=== PATIENT | male | born 1960 | race Caucasian/White ===

== ENCOUNTER → 2021-08-17 15:23 | Outpatient (CLI) | payer OTHER, SELFPAY ==
--- NOTE | 2021-08-17 15:37 | CT_ITS ---
STUDY: CT ABDOMEN AND PELVIS WITHOUT CONTRAST REASON FOR EXAM: Male, 60 years old. GROSS HEMATURIA RADIATION DOSAGE (If Supplied By Facility): CTDIvol = ( 11.12 ) mGy, DLP = ( 547.37 ) mGycm TECHNIQUE: Transaxial images were obtained from the dome of the diaphragm to the symphysis pubis without oral contrast, and without intravenous contrast. Sagittal and coronal images were reconstructed. Individualized dose optimization techniques were used for this CT. COMPARISON: None. FINDINGS: The visualized lung bases are unremarkable. The visualized portions of the heart are within normal limits. Normal liver. Normal gallbladder and extrahepatic biliary system. Normal spleen. Normal pancreas. Normal bilateral adrenal glands. Moderate to marked degree of bilateral hydronephrosis and hydroureter. Normal visualized stomach. There is evidence of a 3.3 cm diverticulum in the second portion of the duodenum. Normal colon. The appendix is visualized and appears normal. Normal abdominal aorta. Normal inferior vena cava. Normal retroperitoneum. Normal urinary bladder. There is enlargement of the prostate gland. The prostate measures 5.9 cm x 5.9 cm. This causes indentation of the bladder base. There is a distention of the urinary bladder with mildly thickened diffuse bladder wall. There is evidence of a 2.7 cm bladder diverticulum in the upper lateral left aspect of the bladder as well as a 1.7 cm diverticulum in the anterior superior aspect of the urinary bladder. Normal abdominal wall. There are diffuse degenerative changes of the visualized lumbar spine. There is evidence of sclerosis of the posterior aspect of the right iliac bone at the level of the right sacroiliac joint. There is also evidence of lucency in the sacral wings bilaterally more prominent on the right side. Correlation with the bone scan is recommended. CT/Abdomen/Pelvis without Cont IMPRESSION: Moderate to marked degree of bilateral hydronephrosis and hydroureter. Distended urinary bladder. Enlargement of the prostate with indentation at the bladder base. Diffuse bladder wall thickening with the bladder diverticula as described. Electronically Signed: Shahbaz Briones MD at 15:52 EST , Service support ,
== END ==
PROVIDERS: PCP Family Medicine; Referring Provider Urology; Visit Provider Urology
DX: R31.0 Gross hematuria (principal); N13.30 Unspecified hydronephrosis; N40.0 Benign prostatic hyperplasia without lower urinary tract symptoms; N32.89 Other specified disorders of bladder
CPT/HCPCS: 74176

== ENCOUNTER 2021-09-07 13:47 | Day surgery (SDC) | payer OTHER, SELFPAY ==
[2021-09-07] VITALS (8 sets, daily range): BP systolic 104–146; BP diastolic 59–97; PULSE 50–69; RESP 16–18; TEMP 35.9–36.7; O2SAT 93–100; BMI 28.9
--- NOTE | 2021-09-07 13:56 | EKG12_ITS ---
Test Reason : PRE OP Blood Pressure : / mmHG Vent. Rate : 052 BPM Atrial Rate : 052 BPM P-R Int : 176 ms QRS Dur : 130 ms QT Int : 470 ms P-R-T Axes : 030 -14 015 degrees QTc Int : 437 ms Somatic/Motion Artifact Sinus bradycardia Right bundle branch block Abnormal ECG Confirmed by ANNABEL MENA, LIVE ([id number]), editorial cartoonist REGINALDO ALONZO ([id number]) on 09/21/2021 8:29:01 AM Referred By: Anselmo Rush Confirmed By:LIVE JIN MD
[2021-09-07] MEDS: Lactated Ringers 1,000 ML 15 ML IV (14:28)
--- NOTE | 2021-09-07 15:55 | PROS_PTH ---
PATIENT: SANDRA ZEPEDA LOC: [facility] – [place] U#:[id number] AGE/SX: 60/M ROOM: RE09/07/[address]: Dr. Anselmo Rush MD : 1960 BED: DIS: 09/08/2021 SPEC #: [id number] RECD: 09/11/21 07:04 STATUS: NIKOLAI LEE #: [id number] SUNG: 09/07/21 15:[address]: Anselmo Rush DEPT: SURGICAL PATHOLOGY RECD BY: aMry Pradhan ENTERED: 09/11/21 09:36 SP TYPE: TURP OTHR DR: Dr. Arslan Barone MD Tissues: Prostate, NOS Procedures: Surgery Specimen Level IV HEADER OPERATION: Cysto, TUR prostate, [facility] PRE-OP DIAGNOSIS: Gross hematuria, generalized abdominal pain TISSUE SUBMITTED: Prostate tissue MICROSCOPIC DIAGNOSIS Prostate, transurethral resection: Benign nodular hyperplasia, glandular and stromal types. Chronic inflammation with focal acute inflammation. Urothelium with mild chronic inflammation. AM:irvin 09/12/2021 MICROSCOPIC DESCRIPTION Slides are reviewed. GROSS DESCRIPTION Received is one container labeled with the patient's name and designated prostate tissue. The specimen consists of multiple irregular fragments of pink-ordoñez, rubbery, soft tissue that in aggregate weigh 29.5 gm and measure in aggregate 7 x 7 x 3 cm. [employer] Super[employer] tissue is submitted in ten cassettes. / SJ:irvin 09/11/21 TC:3 CPT: 06650
--- NOTE | 2021-09-07 17:38 | PCM.HP.STD ---
HPI - General HPI Narrative SANDRA ZEPEDA, is a 60 M who presents for TuRP for retention of urine. PFSH Medical History (Updated 08/30/21 @ 08:18 by Paulina Seymour) Anemia Chronic cough High cholesterol History of arm fracture Indwelling urethral catheter present Non-smoker Prostate disease Varicose vein of leg Wears glasses Home Medications amino acid-multivit w/iron-min 1 pkg PO DAILY 08/30/21 [History Last Taken Unknown] atorvastatin 20 mg PO DAILY 08/30/21 [History Last Taken Unknown] omega-3 fatty acids 1,500 mg PO DAILY 08/30/21 [History Last Taken Unknown] ciprofloxacin HCl [Cipro] 500 mg PO BID #14 tab 09/07/21 [Rx Last Taken Unknown] Allergy/AdvReac Type Severity Reaction Status Date / Time Penicillins [PCN] Allergy Hives Verified 09/07/21 14:10 Surgical History (Updated 08/30/21 @ 08:18 by Paulina Seymour) History of removal of skin mole Hx of colonoscopy Social History Smoking Status: Never smoker Vital Signs Vital Signs Vital Signs: 09/07/21 14:13 Temperature 97.8 F Temperature Source Temporal Pulse Rate 50 L Respiratory Rate 16 Respiratory Pattern Normal Blood Pressure 124/74 H Blood Pressure Mean 90 Blood Pressure Source Monitor Blood Pressure Position Semi-Fowlers Blood Pressure Location Left Arm Pulse Ox 100 Oxygen Delivery Method Room Air Weight Weight: 94 kg Body Mass Index (BMI) 28.9
--- NOTE | 2021-09-07 17:39 | PCM.DC ---
Discharge Instructions Diet Discharge Diet: No restrictions Activity Discharge Activity: Return to Normal Activity and May Not Drive (while taking narcotic pain medications.) Dressing / Incision Call your doctor if you observe: Fever of 101 or Higher Follow Up Care Please Follow Up With: Anselmo Rush MD When: Call [phone] for an appointment Test Results: Test results from this visit will be discussed in further detail at your follow-up appointment, if applicable. Discharge Plan Admission Primary Reason for Your Visit: turp Attending Provider: Anselmo Rush Primary Care Provider: Arslan Barone Instructions Patient Instructions: TURP Home Recovery Discharge Orders/Prescriptions Prescriptions: New ciprofloxacin HCl [Cipro] 500 mg tablet 500 mg PO BID Qty: 14 RF: 0 Continued amino acid-multivit w/iron-min Combo Pack 1 pkg PO DAILY RF: 0 atorvastatin 20 mg tablet 20 mg PO DAILY RF: 0 omega-3 fatty acids Capsule 1,500 mg PO DAILY RF: 0 Discontinued sulfamethoxazole-trimethoprim [Bactrim DS] 800-160 mg Tablet 1 tab PO Q12H RF: 0 tamsulosin 0.4 mg capsule 0.4 mg PO DAILY RF: 0 Urinozinc Prostate Formula [id number] ct-jel-tx-mg-mg Capsule 1 cap PO DAILY RF: 0 Libido Max 1 tab PO/SL PRN PRN (Reason: Erectile Dysfunction) RF: 0 Protandim 1 tab PO/SL DAILY RF: 0 Score 1 tab PO/SL PRN PRN (Reason: Erectile Dysfunction) RF: 0 Super Beta Prostate 1 tab PO/SL DAILY RF: 0 Referrals / Follow Up: Anselmo Rush MD [STAFF PHYSICIAN] - Arslan Barone MD [Primary Care Provider] - Disposition Disposition (needs filled in before D/C Order can be placed): Home, Self Care
--- NOTE | 2021-09-07 17:39 | PCM.OPRPT ---
Report of Operation Date of Procedure: 09/07/21 Pre-Operative Diagnosis: bph with obstruction Post-Operative Diagnosis: same Surgery/Procedure Performed:: TURP Description of Surgical Findings:: In the preoperative setting I discussed with the patient how the surgery would be done with expect afterwards. We discussed how a prostate resection is done and we discussed the risk of the surgery including, bleeding, infection, retrograde ejaculation, changes with ejaculation or intercourse,. We discussed the possibility that the resection of the prostate may not alleviate his urinary symptoms. We discussed the small risk of developing scar tissue along the urethral channel and strictures. We also discussed the chance of the prostate could grow back and he may need further surgery or treatment in the future for prostate problems. Patient was taken back to the operating room, timeout procedure was performed, he was identified and marked and placed on the operating room table. He underwent general anesthesia. He was placed in dorsolithotomy position. Penis and testicles were prepped and draped in usual sterile fashion. Went into the bladder using the visual obturator with a resectoscope. Once inside the bladder identified the right and left ureteral orifice. I then identified the prostate and the anatomy of the prostate. I marked out the area of the sphincter and the verumontanum was identified. I then proceeded with the prostate resection first resected the median lobe. And then resected the right lobe of the prostate. Then to resect the left lobe of the prostate. I then resected the apical tissue of the prostate. This was a complete resection of all obstructive tissue to improve voiding and relieve obstruction. I then made sure that there was no injury to the sphincter or the verumontanum was still intact. At the end of the resection all the chips were Ellik out of the bladder. I then identified the left and right ureteral orifice and these were confirmed to be in good position and effluxing and not injured. The resectoscope was removed, a 22 Romanian catheter was placed into the bladder on continuous irrigation. And the urine was fairly light pink color and draining normally. He was taken back to the PACU in good condition. Surgeon: Adri Type of Anesthesia: General Drains: [address] Admit VTE Documentation VTE Present on Admission: No VTE Mechan Device Prophylaxis: SCD's VTE Pharm Prophylaxis ordered?: No
[2021-09-07] MEDS: Ondansetron 4 MG/2 ML Vial IV (20:43)
[2021-09-07] MEDS: Atorvastatin Calcium 20 MG Tablet PO (22:04)
[2021-09-07] MEDS: Ciprofloxacin 500 MG Tablet PO (22:04)
[2021-09-07] MEDS: Ibuprofen 600 MG Tablet PO (22:05)
[2021-09-08 02:40] VITALS: BP 104/70; PULSE 54; RESP 16; TEMP 36.6; O2SAT 95
[2021-09-08 06:19] VITALS: BP 99/58; PULSE 52; RESP 16; TEMP 36.6; O2SAT 96
[2021-09-08 07:57] VITALS: BP 96/52; PULSE 52; RESP 18; TEMP 36.6; O2SAT 96
[2021-09-08 08:05] VITALS: PULSE 52
[2021-09-08] MEDS: Multivitamins,Ther W-Minerals Tablet 1 TABLET PO (08:11)
[2021-09-08] MEDS: Ciprofloxacin 500 MG Tablet PO (08:11)
--- NOTE | 2021-09-08 08:17 | NURSING ---
Assisted to edge of bed, walked to other side of the bed and pt now sitting up in chair. Looking at menu, going to order breakfast.
--- NOTE | 2021-09-08 12:33 | NURSING ---
Pt states he has drank two full water jugs full of water and is now working on his 3rd. Pt has only voided twice but first void was just dribbles, and second one meausred 50cc. This nurse bladder scanned pt and obtained 509. Pt is getting up to bathroom at this time to attempt another void. is present in room.
[2021-09-08 15:45] VITALS: BP 122/68; PULSE 91; RESP 20; TEMP 37; O2SAT 96
--- NOTE | 2021-09-08 16:07 | NURSING ---
Pt has urinated several times since ferreira taken out this morning at approx 0900. Pt voided a total of 300cc all day today but not at one time. Pt states he feels like he has to urinate even 5 min after he has just got up and urinated. This nurse bladder scanned pt again this last time pt voided and bladder scan Post void was 652ml. Dr. Rush aware and wants pt to have 18fr ferreira to be placed and pt can go home with ferreira and call office next week for appointment.
[2021-09-08] MEDS: Ibuprofen 600 MG Tablet PO (16:37)
--- NOTE | 2021-09-08 16:50 | NURSING ---
ferreira re-inserted. Leg bag given. 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
== END 2021-09-08 17:40 | disposition home or self-care (01) ==
LOC: SDC 13:51 → AC 13:52 → MS3 09-08 16:54
PROVIDERS: PCP Family Medicine; Referring Provider Urology; Visit Provider Urology
PROC: (CPT 52601; principal; 2021-09-07 15:45)
DX: N40.1 Benign prostatic hyperplasia with lower urinary tract symptoms (principal); N13.8 Other obstructive and reflux uropathy; R35.1 Nocturia; R33.8 Other retention of urine; R31.0 Gross hematuria; R10.84 Generalized abdominal pain; I45.10 Unspecified right bundle-branch block; E78.00 Pure hypercholesterolemia, unspecified; Z79.899 Other long term (current) drug therapy
CPT/HCPCS: 52601; 88305; 93005; J7120; J2405

== ENCOUNTER 2021-10-19 16:36 | Outpatient (CLI) | payer OTHER, SELFPAY | END 2021-10-19 23:59 | disposition home or self-care (01) | LOC: LABSPEC 16:37 | PROVIDERS: PCP Family Medicine; Visit Provider Urology | DX: R31.9 Hematuria, unspecified (principal) | CPT/HCPCS: 87077; 87086; 87088; 87186 ==

== ENCOUNTER 2021-11-30 15:25 | Outpatient (CLI) | payer OTHER, SELFPAY ==
[2021-11-30 16:45] LABS: PSA,Total - Annual Screen 6.98 ng/mL (0.00-4.00)
== END 2021-11-30 23:59 | disposition home or self-care (01) ==
PROVIDERS: Visit Provider Urology
DX: Z12.5 Encounter for screening for malignant neoplasm of prostate (principal)
CPT/HCPCS: 36415; 84153; G0103